=== PATIENT | female | born 1985 | race Caucasian/White ===

== ENCOUNTER 2019-05-29 22:09 | Observation (INO) | payer OTHER ==
[2019-05-29] MEDS ORDERED: Sodium Chloride 0.9% 1,000 ML IV SCH ×2 (22:30→23:15)
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
[2019-05-29] MEDS ORDERED: Sodium Chloride 0.9% 10 ML Syringe FLUSH PRN (22:32)
[2019-05-29] MEDS ORDERED: Sodium Chloride 0.9% 80 ML IV SCH (22:45)
[2019-05-29] MEDS ORDERED: Iopamidol 612 MG/ML 150 ML Bottle IV SCH (22:45)
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
[2019-05-30] MEDS ORDERED: Acetaminophen 325 MG Tab PO PRN (00:11)
[2019-05-30] MEDS ORDERED: Sodium Chloride 0.9% 1,000 ML IV ONE ×2 (00:13→00:15)
[2019-05-30] MEDS: Sodium Chloride 0.9% 1,000 ML IV SCH ×2 (02:00→04:56)
[2019-05-30] MEDS ORDERED: carBAMazepine 200 MG Tab PO SCH ×3 (02:07→16:00)
[2019-05-30] MEDS: Ibuprofen 400 MG Tab PO PRN ×2 (02:19→07:35)
[2019-05-30] MEDS: levETIRAcetam 250 MG Tab PO SCH ×2 (02:25→08:11)
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
[2019-05-30] MEDS ORDERED: levETIRAcetam 250 MG Tab PO SCH (09:00)
[2019-05-30] MEDS ORDERED: FLU Vacc QS2019-20(6MOS+)/PF 60 MCG/0.5 ML SYRINGE IM ONE (10:00)
[2019-06-01] MEDS ORDERED: FLU Vacc QS2019-20(6MOS+)/PF 60 MCG/0.5 ML SYRINGE IM ONE (10:00)
== END 2019-05-30 10:45 | disposition home or self-care (01) ==
LOC: JP.ED 22:09 → JP.ICU 05-30 00:11
PROVIDERS: ADMIT Family Medicine; ATTEND Internal Medicine
DX: G40.909 Epilepsy, unspecified, not intractable, without status epilepticus (principal); G89.29 Other chronic pain; M25.559 Pain in unspecified hip; Z79.899 Other long term (current) drug therapy; Z88.6 Allergy status to analgesic agent; Z88.5 Allergy status to narcotic agent; Z23 Encounter for immunization
CPT/HCPCS: 36415; 70450; 71260; 72125; 74177; 80053; 80305; 80320; 81001; 83605; 84484; 84703; 85025; 90686; 93005; 96360; 99285; A9270; J7030; Q9967; 96361; G0378; G0480; J7050

== ENCOUNTER 2019-10-10 16:38 | Emergency (ER) | payer OTHER ==
--- NOTE | 2019-10-10 16:46 | EDM.PDOC ---
ED HPI GENERAL MEDICAL PROBLEM - General Stated Complaint: [facility] Time Seen by Provider: 10/10/19 16:38 Source of Information: Reports: EMS History Limitations: Reports: Altered Mental Status - History of Present Illness INITIAL COMMENTS - FREE TEXT/NARRATIVE: 33-year-old female with a longstanding seizure disorder, was watching TV with her when she had a generalized seizure. It lasted over a minute, it then resolved but then shortly she went into a second seizure so the ambulance was called. EMS arrived fairly quickly and it appeared that she was still in some seizure activity, so 10 mg of IM Versed was given and a nasal trumpet was placed. She was not maintaining an airway on her own initially and her O2 sats dropped to a low of upper 70s. In route to the emergency room she was improving but was still unresponsive. According to the she has not been ill, no fever or chills, shortness of breath, cough, nausea or vomiting or other concerns. She just picked up her new refills of Keppra and carbamazepine today. Onset: Sudden Duration: Hour(s): (Seizure activity started within the past hour) Location: Reports: Generalized Associated Symptoms: Reports: Nausea/Vomiting (One emesis at home, frothy sputum several times after arriving in the emergency room.) - Related Data Allergies Allergy/AdvReac Type Severity Reaction Status Date / Time acetaminophen [From Vicodin] Allergy Cannot Verified 10/10/19 17:11 Remember cyclobenzaprine Allergy Nausea and Verified 10/10/19 17:11 [From Flexeril] Vomiting hydrocodone [From Vicodin] Allergy Hives Verified 10/10/19 17:11 Home Meds: Home Meds carBAMazepine [Tegretol] 400 mg PO ACBREAKFAST 05/29/19 [History] carBAMazepine [Tegretol] 600 mg PO ACDINNER 05/29/19 [History] levETIRAcetam [Keppra] 500 mg PO BID 05/29/19 [History] Cholecalciferol (Vitamin D3) [Vitamin D] 5,000 unit PO DAILY 05/30/19 [History] Cyanocobalamin (Vitamin B-12) [Vitamin B-12] 1,000 mcg PO DAILY 05/30/19 [ History] Past Medical History Other [employer]IOR [employer] History: IUD Musculoskeletal History: Reports: Connective Tissue Disease, Fracture Other Musculoskeletal History: screw in foot Neurological History: Reports: Seizure Other Neuro History: started at age of 25 Endocrine/Metabolic History: Reports: Obesity/BMI 30+ - Infectious Disease History Infectious Disease History: Reports: Chicken Pox, Other (See Below) Other Infectious Disease History: positive mantoux, negative CXR's - Past Surgical History HEENT Surgical History: Reports: Oral Surgery, Tonsillectomy Other HEENT Surgeries/Procedures: wisdom teeth GI Surgical History: Reports: Cholecystectomy Social & Family History - Family History Family Medical History: Noncontributory - Caffeine Use Caffeine Use: Reports: None ED ROS GENERAL - Review of Systems Review Of Systems: See Below Reason Not Obtained: Review of systems obtained from her Constitutional: Denies: Fever, Chills Respiratory: Denies: Shortness of Breath Cardiovascular: Denies: Chest Pain GI/Abdominal: Reports: Vomiting (Vomiting occurred only after her seizures). Denies: Nausea : Reports: No Symptoms Neurological: Denies: Headache - Physical Exam Exam: See Below Text/Narrative:: Patient arrived unresponsive with a nasal trumpet in place, and O2 mask in place with 10 L of mask oxygen. She was unresponsive to voice, did react to pain and stimulation of the left sole of her foot. When I manually opened her eyes, her pupils were brisk and reactive but she had a disconjugate gaze. Exam Limited By: Altered Mental Status General Appearance: Obtunded Eye Exam: Bilateral Eye: PERRL, Other (Disconjugate gaze initially) Throat/Mouth: Normal Inspection (No injury noted) Head Exam: Atraumatic Neck: Supple Respiratory/Chest: Lungs Clear Cardiovascular: Regular Rate, Rhythm GI/Abdominal: Other (Morbidly obese) Neuro Exam (Abbreviated): Unresponsive (Except for stimulus of her left sole of her foot) Skin Exam: Warm, Dry Course - Vital Signs Last Recorded V/S: Last Vital Signs Temp 97.4 F 10/10/19 17:28 Pulse 106 H 10/10/19 17:43 Resp 16 10/10/19 17:43 BP 132/82 10/10/19 17:43 Pulse Ox 98 10/10/19 17:43 - Orders/Labs/Meds Orders: Active Orders 24 hr Category Date Time Status CARBAMAZEPINE(TEGRETOL),S Stat Lab 10/10/19 16:55 Received LEVETIRACETAM (KEPPRA), S Stat Lab 10/10/19 16:55 Received Labs: Laboratory Tests 10/10/19 10/10/19 Range/Units 16:55 16:55 WBC 9.3 (4.5-11.0) K/uL RBC 4.63 (3.30-5.50) M/uL Hgb 14.0 (12.0-15.0) g/dL Hct 42.1 (36.0-48.0) % MCV 91 (80-98) fL MCH 30 (27-31) pg MCHC 33 (32-36) % Plt Count 262 (150-400) K/uL Neut % (Auto) 56 (36-66) % Lymph % (Auto) 36 (24-44) % [place] % (Auto) 7 H (2-6) % Eos % (Auto) 0 L (2-4) % Baso % (Auto) 0 (0-1) % Sodium 138 L (140-148) mmol/L Potassium 3.5 L (3.6-5.2) mmol/L Chloride 103 (100-108) mmol/L Carbon Dioxide 17 L (21-32) mmol/L Anion Gap 21.5 H (5.0-14.0) mmol/L BUN 14 (7-18) mg/dL Creatinine 1.1 H (0.6-1.0) mg/dL Est Cr Clr Drug Dosing 68.47 mL/min Estimated GFR (MDRD) 57 L (>60) Glucose 151 H (74-106) mg/dL Calcium 8.2 L (8.5-10.1) mg/dL Magnesium 2.1 (1.8-2.4) mg/dL Total Bilirubin 0.2 (0.2-1.0) mg/dL AST 23 (15-37) U/L ALT 46 (12-78) U/L Alkaline Phosphatase 89 (46-116) U/L Total Protein 6.7 (6.4-8.2) g/dL Albumin 3.4 (3.4-5.0) g/dL Globulin 3.3 (2.3-3.5) g/dL Albumin/Globulin Ratio 1.0 L (1.2-2.2) Meds: Medications Discontinued Medications Generic Name Dose Route Start Last Admin Trade Name Freq PRN Reason Stop Dose Admin Levetiracetam 1,500 mg/ Sodium 115 mls @ 400 mls/hr 10/10/19 17:12 10/10/19 17:21 Chloride IV 10/10/19 17:26 400 mls/hr ONETIME ONE Administration - Re-Assessments/Exams Free Text/Narrative Re-Assessment/Exam: 10/10/19 17:42 Due to the significant depressed mental status, [id number] seizures and disconjugate gaze and urgent CT of the head was obtained. This was negative and by the time she returned from CT she was starting to become more arousable. Within 30 minutes she was answering questions and neurologic status return to baseline other than sedation. A carbamazepine and Keppra level was drawn as well as a CBC and CMP with magnesium. As the patient regained orientation, she admitted that she had been out of her seizure medication for the last several days and has not taken any of her new prescription. 10/10/19 17:43 1500 mg of IV Keppra was given, along with 600 mg of oral carbamazepine. 10/10/19 17:49 Patient was able to take 600 mg of oral carbamazepine without difficulty, it was her own prescription. CBC returned normal, CMP relatively normal. 10/10/19 17:49 IMPRESSION: 1. No acute intracranial hemorrhage or mass. 10/10/19 17:57 After an additional hour the patient felt more back to baseline, labs were reassuring. After she was thinking clear she is not sure she missed any doses of her antiseizure medications so the levels do become more important and they will be available on Saturday. She is to keep her current doses and return if any recurring seizures are a problem. Departure - Departure Time of Disposition: 18:03 Disposition: Home, Self-Care 01 Clinical Impression: Seizure - Discharge Information Instructions: Seizure, Adult, [id number] Referrals: PCP,None [Primary Care Provider] - Forms: ED Department Discharge Care Plan Goals: Continue your current medications, consider rechecking with your neurologist late next week after your medication levels return on Saturday. It does not have to be a personal visit, a teleconference would suffice. Return anytime if you continue to have recurring seizure activity. Sepsis Event Note - Focused Exam Vital Signs: Vital Signs Temp Pulse Resp BP Pulse Ox 10/10/19 17:43 106 H 16 132/82 98 10/10/19 17:28 97.4 F 114 H 18 123/73 92 L 10/10/19 17:08 97.4 F 114 H 18 123/73 92 L 10/10/19 16:42 97.4 F 113 H 18 140/89 97 Date Exam was Performed: 10/10/19 Time Exam was Performed: 18:32 - My Orders Last 24 Hours: My Active Orders 10/10/19 16:55 CARBAMAZEPINE(TEGRETOL),S Stat LEVETIRACETAM (KEPPRA), S Stat - Assessment/Plan Last 24 Hours: My Active Orders 10/10/19 16:55 CARBAMAZEPINE(TEGRETOL),S Stat LEVETIRACETAM (KEPPRA), S Stat
[2019-10-10] MEDS ORDERED: levETIRAcetam 1,500 MG in Sodium Chloride 0.9% 100 ML IV ONE (17:12)
--- NOTE | 2019-10-10 17:50 | CRLCT ---
INDICATIONS: Seizure. TECHNIQUE: Noncontrast head CT scan. Findings: Axial noncontrast images through the brain parenchyma demonstrates no acute intracranial hemorrhage or mass. No midline shift. No abnormal extra-axial air fluid collections are seen. Visualized paranasal sinuses, mastoid air cells skull and scalp appear unremarkable. IMPRESSION: 1. No acute intracranial hemorrhage or mass. Please note that all CT scans at this facility use dose modulation, iterative reconstruction, and/or weight-based dosing when appropriate to reduce radiation dose to as low as reasonably achievable. Dictated by Enma Cordero MD @ Oct 10 2019 5:48PM Signed by Dr. Enma Cordero @ Oct 10 2019 5:49PM
== END 2019-10-10 18:04 | disposition home or self-care (01) ==
LOC: JP.ED 16:38
DX: G40.909 Epilepsy, unspecified, not intractable, without status epilepticus (principal); E66.01 Morbid (severe) obesity due to excess calories; Z68.41 Body mass index [BMI] 40.0-44.9, adult; Z88.5 Allergy status to narcotic agent; Z88.8 Allergy status to other drugs, medicaments and biological substances; Z79.899 Other long term (current) drug therapy
CPT/HCPCS: 70450; 80053; 80156; 80177; 83735; 85025; 96365; 99284; J1953; J7050